=== PATIENT | female | born 1985 | race Caucasian/White ===

== ENCOUNTER 2017-02-18 11:11 | Inpatient (IN) | payer OTHER ==
[~2017-02-18] VITALS: Ht 162.5 cm; Wt 54.4 kg
[~2017-02-18 11:11] MED LIST: ATARAX,VISTARIL50 MG PO; BACTRIM DS 8001 TA1 PO; CARBIDOPA/LEVOD1 TA1 PO; FE-TABS325 MG PO; IBU-TAB800 MG PO; IBU800 M1 PO; MOTRIN800 MG PO; NKHM; PERCOCET 325 MG1 TA7 PO; PNV-SELECT1 TAB PO; PREVACID30 M1 PO; PYRIDIUM200 MG PO; SERTRALINE HYDR25 MG PO; ULTRAM50 MG PO; VICODIN 5/500 505 MG PO; ZOFRAN 4 MG ED2 TAB PO; Zofran4 MG PO
--- NOTE | 2017-02-18 12:15 | NUR ---
31 year old FEMALE admitted to room # 531 for stabilization. Reports an addiction to IV HEROIN last used 12 hours prior to admission. Compliant with admission procedure. Patient denies any anxiety, but is unable to sit still, taps toes to floor continuously, looks about room, unable to focus eyes on nurse during interview. See assessment forms for additional information about patient status.
[2017-02-18 12:23] LABS: BILIRUBIN NEGATIVE (NEGATIVE); BLOOD 3+ (NEGATIVE); CLARITY CLOUDY (CLEAR); COLOR YELLOW (YELLOW); GLUCOSE NEGATIVE (NEGATIVE); KETONE NEGATIVE (NEGATIVE); LEUKO ESTERASE NEGATIVE (NEGATIVE); NITRITE NEGATIVE (NEGATIVE); PH 8.5 (5.0-9.0)
[2017-02-18 12:30] VITALS: BP 108/60
[2017-02-18 12:44] LABS: RBC 51-100 rbc/hpf (0-2)
[2017-02-18 12:47] LABS: URINE AMPHETAMINES < 1000 (1000ng/ml); URINE BARBITURATES < 200 (200ng/ml); URINE BENZODIAZEPINES < 200 (200ng/ml); URINE CANNABINOIDS (THC) < 50 (50ng/ml); URINE COCAINE < 300 (300ng/ml); URINE METHADONE < 300 (300ng/ml); URINE OPIATES > 300 (300ng/ml)
[2017-02-18 12:48] LABS: URINE PHENCYCLIDINE < 25 (25ng/ml)
[2017-02-18 12:52] LABS: BASO # 0.1 10*3/uL (0.0-0.1); BASO % 1.1 % (0.0-1.0); EOS # 0.1 10*3/uL (0.0-0.4); EOS % 2.8 % (1.0-4.0); HEMATOCRIT 36.6 % (37.0-47.0); HEMOGLOBIN 11.8 g/dl (12.0-16.0); LYMPH # 1.9 10*3/uL (1.3-4.4); LYMPH % 40.9 % (27.0-41.0); MEAN CELL VOLUME 81.3 fl (81.0-99.0); MEAN CORPUSCULAR HGB 26.2 pg (27.0-31.0); MEAN CORPUSCULAR HGB CONC 32.2 g/dl (33.0-37.0); MEAN PLATELET VOLUME 8.1 fl (9.6-12.3); MONO # 0.3 10*3/uL (0.1-1.0); MONO % 6.9 % (3.0-9.0); NEUT # 2.2 10*3/uL (2.3-7.9); NEUT % 48.1 % (47.0-73.0); PLATELET COUNT AUTOMATED 276 10*3/uL (130-400); RED CELL DISTRI WIDTH 14.4 % (0-14.5); WHITE BLOOD COUNT 4.6 10*3/uL (4.8-10.8)
[2017-02-18 13:08] LABS: ALBUMIN 3.3 gm/dl (3.1-4.5); ALKALINE PHOSPHATASE 61 U/L (45-117); BUN 9 mg/dl (7-24); CHLORIDE 107 mmol/L (98-107); LIPASE 87 U/L (73-393); POTASSIUM 4.3 mmol/L (3.5-5.1); SGOT/AST 14 IU/L (3-35); SGPT/ALT 10 U/L (12-78); SODIUM 140 mmol/L (136-145); TOTAL PROTEIN 7.8 gm/dL (6.4-8.2)
[2017-02-18 13:10] LABS: ETHYL ALCOHOL < 3.0 mg/dl (<3)
[2017-02-18 13:11] LABS: BETA-HCG, QUANT < 1.0 mIU/mL (1-3)
--- NOTE | 2017-02-18 14:23 | NUR ---
VISTARIL GIVEN AT THIS TIME FOR C/O ANXIETY. WILL CONT TO MONITOR. CALL LIGHT IN REACH.
--- NOTE | 2017-02-18 15:42 | NUR ---
D/C PLANNING: PATIENT WANTS TO GO TO [facility] FOR HER AFTERCARE PLAN. CHARLI WINTER B.A. DEBIT AGENT
[2017-02-18 16:00] VITALS: BP 105/48
--- NOTE | 2017-02-18 16:34 | NUR ---
PT C/O STOMACH CRAMPS, ANXIETY, NICOTINE WITHDRAWAL, RESTLESS LEGS, LEG CRAMPS AND NAUSEA. GIVEN MOTRIN, A NICOTINE PATCH, REQUIP, BENTYL, ROBAXIN AND ZOFRAN. WILL CONT TO MONITOR.
--- NOTE | 2017-02-18 17:34 | NUR ---
PT RESTING AT THIS TIME. PRN'S EFF. WILL CONT TO MONITOR.
[2017-02-18 20:00] VITALS: BP 120/65
[2017-02-19] VITALS: BP 101/56
--- NOTE | 2017-02-19 05:02 | NUR ---
PATIENT MEDICATED WITH TRAZODONE AND VISTARIL AT 2148 FOR COMPLAINTS OF INSOMNIA AND ANXIETY WITH EFFECTIVE RESULTS NOTED FOR BOTH. RESTING IN BED WITH EYES CLOSED. NO SIGNS OR SYMPTOMS OF DISTRESS NOTED. WILL CONTINUE TO MONITOR. CALL LIGHT IN REACH.
[2017-02-19 08:00] VITALS: BP 108/55
[2017-02-19 08:13] LABS: HEPATITIS B SURFACE AG Negative (Negative); HIV 1+2 AB + HIV1 P24 AG Non Reactive (Non Reactive)
--- NOTE | 2017-02-19 10:09 | NUR ---
PT MEDICATED WITH ROBAXIN FOR MUSCLE ACHES AND VISTARIL FOR ANXIETY. WILL MONITOR
--- NOTE | 2017-02-19 11:47 | NUR ---
ROBAXIN AND VISTARIL EFFECTIVE, WILL MONITOR
[2017-02-19 12:00] VITALS: BP 110/61
[2017-02-19 16:00] VITALS: BP 98/60
--- NOTE | 2017-02-19 19:31 | NUR ---
PATIENT RESTING IN BED WITH EYES CLOSED. EASILY ARROUSABLE. RESPS EASY AND REGULAR. BED IN LOWEST POSITION, CALL LIGHT IN REACH
--- NOTE | 2017-02-19 21:42 | NUR ---
PATIENT MEDICATED WITH PRN VISTARIL FOR ANXIOUSNESS, AND REQUIP AND ROBAXIN FOR RESTLESS LEGS AND MUSCLE ACHES. WILL MONITOR
[2017-02-20] VITALS: BP 99/65
--- NOTE | 2017-02-20 03:53 | NUR ---
24 HR chart check completed.
--- NOTE | 2017-02-20 05:42 | NUR ---
PATIENT SITTING UP IN BED WATCHING TV. NO NEEDS MADE. BED IN LOWEST POSITION, CALL LIGHT IN REACH
[2017-02-20 08:00] VITALS: BP 94/50
--- NOTE | 2017-02-20 08:27 | NUR ---
PT MEDICATED WITH ROBAXIN FOR MUSCLE ACHES, AND VISTARIL FOR ANXIETY. WILL MONITOR
--- NOTE | 2017-02-20 11:00 | NUR ---
ROBAXIN AND VISTARIL EFFECTIVE, WILL MONITOR
[2017-02-20 12:00] VITALS: BP 97/61
--- NOTE | 2017-02-20 16:10 | NUR ---
PT NOT IN ROOM , BELONGINGS GONE. DR SONI NOTIFIED AND YOMI POULTRY DRESSER NOTIFIED
[2017-02-21 11:12] LABS: HEPATITIS C VIRUS ANTIBODY >11.0 s/co (0.0-0.9)
== END 2017-02-20 16:27 | disposition left against medical advice (07) | DRG 894 ==
LOC: 5E 11:11
PROVIDERS: Internal Medicine Nephrology; ADMIT Emergency Medicine
DX: F11.23 Opioid dependence with withdrawal (principal); E44.0 Moderate protein-calorie malnutrition; F32.9 Major depressive disorder, single episode, unspecified; D64.9 Anemia, unspecified; D72.824 Basophilia; F41.9 Anxiety disorder, unspecified; Z53.21 Procedure and treatment not carried out due to patient leaving prior to being seen by health care provider; Z71.6 Tobacco abuse counseling; Z91.041 Radiographic dye allergy status; Z88.5 Allergy status to narcotic agent

== ENCOUNTER 2017-04-21 16:10 | Emergency (ER) | payer OTHER ==
[~2017-04-21] VITALS: Ht 162.5 cm; Wt 52.2 kg
[2017-04-21 16:47] LABS: BILIRUBIN NEGATIVE (NEGATIVE); BLOOD NEGATIVE (NEGATIVE); CLARITY SL CLOUDY (CLEAR); COLOR YELLOW (YELLOW); GLUCOSE NEGATIVE (NEGATIVE); KETONE TRACE (NEGATIVE); LEUKO ESTERASE NEGATIVE (NEGATIVE); NITRITE NEGATIVE (NEGATIVE); PH 5.5 (5.0-9.0); SPECIFIC GRAVITY >= 1.030 (1.005-1.030); UROBILINOGEN 0.2 E.U./dl (0.2-1.0)
[2017-04-21 16:50] LABS: BASO % 0.2 % (0.0-1.0); EOS # 0.1 10*3/uL (0.0-0.4); EOS % 0.8 % (1.0-4.0); HEMOGLOBIN 14.3 g/dl (12.0-16.0); LYMPH % 15.2 % (27.0-41.0); MEAN CORPUSCULAR HGB 25.7 pg (27.0-31.0); MEAN CORPUSCULAR HGB CONC 32.5 g/dl (33.0-37.0); MEAN PLATELET VOLUME 8.5 fl (9.6-12.3); MONO # 0.7 10*3/uL (0.1-1.0); MONO % 5.1 % (3.0-9.0); NEUT # 10.1 10*3/uL (2.3-7.9); NEUT % 78.3 % (47.0-73.0); PLATELET COUNT AUTOMATED 427 10*3/uL (130-400); RED BLOOD COUNT 5.57 10*6/uL (4.10-5.10); RED CELL DISTRI WIDTH 14.4 % (0-14.5); WHITE BLOOD COUNT 12.9 10*3/uL (4.8-10.8)
[2017-04-21 16:58] LABS: BACTERIA 1+; MUCOUS 2+
[2017-04-21 16:59] LABS: EPITHELIAL CELLS 16-20
[2017-04-21 17:06] LABS: ALBUMIN 4.2 gm/dl (3.1-4.5); ALKALINE PHOSPHATASE 73 U/L (45-117); BUN 13 mg/dl (7-24); CHLORIDE 105 mmol/L (98-107); POTASSIUM 3.8 mmol/L (3.5-5.1); SGOT/AST 20 IU/L (3-35); SGPT/ALT 25 U/L (12-78); SODIUM 138 mmol/L (136-145); TOTAL PROTEIN 9.4 gm/dL (6.4-8.2)
[2017-04-21 17:08] LABS: LIPASE 206 U/L (73-393)
[2017-04-21] MEDS ORDERED: ZOFRAN ODT4 MG SL (19:02)
== END 2017-04-21 19:29 | disposition home or self-care (01) ==
LOC: ED 16:10
PROVIDERS: Nurse Practitioner Family
DX: K29.70 Gastritis, unspecified, without bleeding (principal); Z88.5 Allergy status to narcotic agent; F17.210 Nicotine dependence, cigarettes, uncomplicated

== ENCOUNTER 2024-05-26 13:57 | Emergency (ER) | payer MEDICAID ==
[~2024-05-26] VITALS: Ht 162.5 cm; Wt 65.8 kg
[~2024-05-26 13:57] MED LIST changes: +ZOFRAN ODT4 MG SL
[2024-05-26] MEDS ORDERED: ARIPIPRAZOLE2 MG PO (14:08)
[2024-05-26] MEDS ORDERED: CITALOPRAM20 MG PO (14:08)
[2024-05-26] MEDS ORDERED: PREDNISONE50 MG PO (14:18)
[2024-05-26] MEDS ORDERED: CYCLOBENZAPRINE5 M3 PO (14:18)
[2024-05-26] MEDS ORDERED: methylPREDNISolone sod succ 125 MG VIAL IM ONE (14:20)
[2024-05-26] MEDS ORDERED: Ketorolac Tromethamine 30 MG/ML VIAL IM ONE (14:20)
== END 2024-05-26 14:29 | disposition home or self-care (01) ==
LOC: ED 13:57
DX: S39.012A Strain of muscle, fascia and tendon of lower back, initial encounter (principal); M79.604 Pain in right leg; F17.200 Nicotine dependence, unspecified, uncomplicated; Z86.73 Personal history of transient ischemic attack (TIA), and cerebral infarction without residual deficits; Z91.041 Radiographic dye allergy status; Z88.5 Allergy status to narcotic agent; Z90.89 Acquired absence of other organs; Z98.890 Other specified postprocedural states; Z90.49 Acquired absence of other specified parts of digestive tract; X58.XXXA Exposure to other specified factors, initial encounter; Y93.89 Activity, other specified; Y92.009 Unspecified place in unspecified non-institutional (private) residence as the place of occurrence of the external cause; Y99.8 Other external cause status